=== PATIENT | female | born 1970 | race Caucasian/White ===

== ENCOUNTER → 2018-01-07 | Outpatient (CLI) | payer BC | LOC: M WHC 15:17 | DX: Z12.31 Encounter for screening mammogram for malignant neoplasm of breast (principal); E65 Localized adiposity | CPT/HCPCS: 77067 ==

== ENCOUNTER → 2018-01-07 | Outpatient (REF) | payer OTHER | LOC: M SFHCWAGY 15:53 | DX: Z01.411 Encounter for gynecological examination (general) (routine) with abnormal findings (principal) | CPT/HCPCS: G0123 ==

== ENCOUNTER → 2018-08-17 | Outpatient (CLI) | payer BC, OTHER | LOC: M LRY 12:24 | DX: S89.91XA Unspecified injury of right lower leg, initial encounter (principal); M17.11 Unilateral primary osteoarthritis, right knee; X58.XXXA Exposure to other specified factors, initial encounter; Y92.9 Unspecified place or not applicable | CPT/HCPCS: 73564 ==

== ENCOUNTER → 2018-10-11 | Outpatient (CLI) | payer BC, OTHER | LOC: M LRY 11:03 | DX: R05 Cough (principal) | CPT/HCPCS: 71046 ==

== ENCOUNTER → 2018-10-11 | Outpatient (CLI) | payer BC, OTHER | LOC: M LRY 09:18 | DX: M25.572 Pain in left ankle and joints of left foot (principal); M25.772 Osteophyte, left ankle | CPT/HCPCS: 73610 ==

== ENCOUNTER → 2019-07-14 | Outpatient (REF) | payer OTHER ==
[2019-07-14 20:21] LABS: HEMOGLOBIN 11.1 g/dl (12.0-15.5); MEAN CORPUSCULAR HEMOGLOBIN 22.9 pg (27.0-33.0); MEAN CORPUSCULAR VOLUME 76.4 fl (80.0-96.0); PLATELET COUNT, AUTOMATED 405 10^3/uL (150-450); RED BLOOD COUNT 4.84 10^6/uL (4.00-5.40); WHITE BLOOD COUNT 12.6 10^3/uL (4.0-10.0)
[2019-07-14 20:30] LABS: ALBUMIN 3.3 GM/DL (3.2-5.2); ALT/SGPT 18 U/L (12-78); BILIRUBIN,TOTAL 0.1 MG/DL (0.2-1.0); BLOOD UREA NITROGEN 16 MG/DL (7-18); CALCIUM LEVEL 9.6 MG/DL (8.5-10.1); CARBON DIOXIDE LEVEL 28 MEQ/L (21-32); CHLORIDE LEVEL 104 MEQ/L (98-107); GLOMERULAR FILTRATION RATE > 60.0 (>58); GLUCOSE, FASTING 92 MG/DL (70-100); POTASSIUM SERUM 4.2 MEQ/L (3.5-5.1); SODIUM LEVEL 140 MEQ/L (136-145); THYROID STIMULATING HORMONE 0.651 uIU/ML (0.358-3.740); TOTAL PROTEIN 7.1 GM/DL (6.4-8.2)
== END ==
LOC: M SFHCLERA 16:45
PROVIDERS: ATTEND Nurse Practitioner Family
DX: R00.2 Palpitations (principal); R01.1 Cardiac murmur, unspecified

== ENCOUNTER → 2023-06-11 | Outpatient (CLI) | payer BC, OTHER | LOC: M WHC 11:02 | PROVIDERS: ATTEND Nurse Practitioner Women's Health | DX: Z12.31 Encounter for screening mammogram for malignant neoplasm of breast (principal) ==

== ENCOUNTER → 2023-06-11 | Outpatient (CLI) | payer BC, OTHER ==
[2023-06-11 15:27] LABS: GC DNA AMPLIFICATION NEGATIVE (NEGATIVE)
[2023-06-11 16:51] LABS: HIV 1&2 SCREEN NEGATIVE (NEGATIVE)
== END ==
LOC: M PLALAB 12:09
PROVIDERS: ATTEND Nurse Practitioner Women's Health
DX: Z01.419 Encounter for gynecological examination (general) (routine) without abnormal findings (principal); Z11.3 Encounter for screening for infections with a predominantly sexual mode of transmission; Z77.9 Other contact with and (suspected) exposures hazardous to health
CPT/HCPCS: 36415; 86780; 87389; 87624; 87661; 87810; 87850; G0123

== ENCOUNTER 2024-01-03 09:47 | Day surgery (SDC) | payer BC, OTHER ==
[~2024-01-03] VITALS: Ht 167.6 cm; Wt 158.4 kg
[~2024-01-03 09:47] MED LIST: FLUO20CA22 PO; HYDR12CA PO; LISI20TA33 PO; SAXE1INJ
[2024-01-03] MEDS ORDERED: DEXTROSE 50% 50ML SYRINGE IV PRN (10:05)
[2024-01-03] MEDS ORDERED: LR 1,000 ML IV SCH ×2 (10:05→14:15)
[2024-01-03] MEDS ORDERED: GLUCOSE 4GM CHEW TABLET PO PRN (10:05)
[2024-01-03] MEDS ORDERED: GLUCAGON INJ 1MG VIAL SC PRN (10:05)
[2024-01-03] MEDS ORDERED: INSULIN LISPRO (NovoLOG) PER UNIT SC PRN (10:05)
[2024-01-03 10:49] LABS: HEMATOCRIT 39.4 % (36.0-47.0); HEMOGLOBIN 12.3 g/dl (12.0-15.5); MEAN CORPUSCULAR HEMOGLOBIN 24.5 pg (27.0-33.0); MEAN CORPUSCULAR HGB CONC 31.2 g/dl (32.0-36.5); MEAN CORPUSCULAR VOLUME 78.5 fl (80.0-96.0); PLATELET COUNT, AUTOMATED 356 10^3/uL (150-450); RED BLOOD COUNT 5.02 10^6/uL (4.00-5.40)
[2024-01-03 11:08] LABS: ALBUMIN 3.5 G/DL (3.2-5.2); ALKALINE PHOSPHATASE 140 U/L (46-116); ALT/SGPT 23 U/L (7.0-40); AST/SGOT 15 U/L (<34); BILIRUBIN,TOTAL 0.3 MG/DL (0.3-1.2); BLOOD UREA NITROGEN 14 MG/DL (9-23); CALCIUM LEVEL 9.3 MG/DL (8.5-10.1); CARBON DIOXIDE LEVEL 26 MMOL/L (20-31); CHLORIDE LEVEL 104 MMOL/L (98-107); GLOMERULAR FILTRATION RATE > 60.0 (>51); GLUCOSE, FASTING 102 MG/DL (60-100); POTASSIUM SERUM 4.4 MMOL/L (3.5-5.1); SODIUM LEVEL 137 MMOL/L (136-145); TOTAL PROTEIN 6.8 G/DL (5.7-8.2)
[2024-01-03] MEDS ORDERED: LIDOCAINE 2% 100MG/5ML SDV (FOR ANES.) As Ordered ONE (11:19)
[2024-01-03] MEDS ORDERED: propofoL 200 MG/20 ML VIAL As Ordered ONE (11:19)
[2024-01-03] MEDS ORDERED: ROCURONIUM BROMIDE 50MG/5ML VIAL As Ordered ONE (11:19)
[2024-01-03] MEDS ORDERED: fentaNYL 100 MCG/2 ML INJECTION As Ordered ONE (11:20)
[2024-01-03] MEDS ORDERED: MIDAZOLAM INJ 2MG/2ML VIAL As Ordered ONE (11:20)
[2024-01-03] MEDS ORDERED: PHENYLephrine 500MCG 5ML (100MCG/ML) SYRINGE As Ordered ONE (12:23)
[2024-01-03] MEDS ORDERED: ePHEDrine SULFATE 25 MG/5 ML(5MG/ML) SYRINGE As Ordered ONE (12:51)
[2024-01-03] MEDS: ESTROGENS VAGINAL CREAM 30GM As Ordered ONE (13:15)
[2024-01-03] MEDS: SILVER SULFADIAZINE 1% CR 50 GM JAR As Ordered ONE (13:17)
[2024-01-03] MEDS ORDERED: propofoL 500 MG/50 ML VIAL As Ordered ONE (13:40)
[2024-01-03] MEDS ORDERED: KETOROLAC 60MG 2ML VIAL As Ordered ONE (14:08)
[2024-01-03] MEDS ORDERED: HYDROMORPHONE HCL 0.5 MG/ 0.5 ML SYRINGE IV PRN (14:15)
[2024-01-03] MEDS ORDERED: fentaNYL 100 MCG/2 ML INJECTION IV PRN (14:15)
[2024-01-03] MEDS ORDERED: ONDANSETRON 4MG 2ML VIAL IV PRN (14:15)
[2024-01-03] MEDS ORDERED: oxyCODONE 5MG TAB PO PRN (14:15)
[2024-01-03 14:50] VITALS: BP 138/80; TEMP 97.9; O2SAT 96
[2024-01-03] MEDS ORDERED: OXYC-517 PO (16:06)
== END 2024-01-03 14:50 | disposition home or self-care (01) ==
LOC: M SDC 09:47
PROVIDERS: ATTEND Obstetrics & Gynecology
DX: N90.60 Unspecified hypertrophy of vulva (principal); R10.2 Pelvic and perineal pain; G47.30 Sleep apnea, unspecified; Z68.43 Body mass index [BMI] 50.0-59.9, adult; I10 Essential (primary) hypertension; F41.9 Anxiety disorder, unspecified; F32.A Depression, unspecified; Z88.1 Allergy status to other antibiotic agents; Z79.899 Other long term (current) drug therapy
CPT/HCPCS: 36415; 56620; 80053; 81025; 85027; 86850; 86900; 86901; 88302; J0665; J1885; J2250; J2371; J3010

== ENCOUNTER → 2024-09-12 | Outpatient (CLI) | payer BC ==
[~2024-09-12] MED LIST changes: +FLUO-365 PO; -FLUO20CA22 PO; +OXYC-517 PO
[2024-09-12 16:08] LABS: BASO # 0.1 10^3/uL (0.0-0.2); BASO % 0.6 % (0.0-1.0); EOS # 0.1 10^3/uL (0.0-0.5); EOS % 1.2 % (0.0-3.0); HEMATOCRIT 40.6 % (36.0-47.0); HEMOGLOBIN 12.8 g/dl (12.0-15.5); LYMPH # 2.1 10^3/uL (1.5-5.0); LYMPH % 17.8 % (24.0-44.0); MEAN CORPUSCULAR HGB CONC 31.5 g/dl (32.0-36.5); MEAN CORPUSCULAR VOLUME 79.5 fl (80.0-96.0); MONO # 0.9 10^3/uL (0.0-0.8); MONO % 7.2 % (2.0-8.0); NEUTROPHILS # 8.8 10^3/uL (1.5-8.5); NEUTROPHILS % 72.9 % (36.0-66.0); PLATELET COUNT, AUTOMATED 394 10^3/uL (150-450); RED BLOOD COUNT 5.11 10^6/uL (4.00-5.40)
[2024-09-12 16:39] LABS: ALBUMIN 3.6 G/DL (3.2-5.2); ALKALINE PHOSPHATASE 161 U/L (35-104); ALT/SGPT 22 U/L (7.0-40); AST/SGOT 14 U/L (<34); BILIRUBIN,TOTAL 0.3 MG/DL (0.3-1.2); BLOOD UREA NITROGEN 17 MG/DL (9-23); CALCIUM LEVEL 9.8 MG/DL (8.5-10.1); CARBON DIOXIDE LEVEL 24 MMOL/L (20-31); CHLORIDE LEVEL 105 MMOL/L (98-107); CHOLESTEROL LEVEL 144 MG/DL (<200); CHOLESTEROL RISK RATIO 2.36 (<5); CREATININE FOR GFR 0.63 MG/DL (0.55-1.30); FOLATE 20.35 NG/ML (>5.4); GLOMERULAR FILTRATION RATE > 60.0 (>51); GLUCOSE, FASTING 97 MG/DL (60-100); HDL CHOLESTEROL 60.9 MG/DL (>40); IRON (FE) 57 UG/DL (50-170); LDL CHOLESTEROL 63.1 MG/DL (<100); NON-HDL-C 83.1 MG/DL; PERCENT SATURATION 14.5 % (13.2-45.0); POTASSIUM SERUM 4.4 MMOL/L (3.5-5.1); SODIUM LEVEL 138 MMOL/L (136-145); TOTAL IRON BINDING CAPACITY 393 UG/DL (250-425); TRIGLYCERIDES LEVEL 100 MG/DL (<150)
[2024-09-12 16:40] LABS: TOTAL 25(OH) VITAMIN D 36.3 NG/ML (20.0-100.0)
[2024-09-12 16:46] LABS: VITAMIN B12 LEVEL > 2000 PG/ML (211-911)
[2024-09-12 17:03] LABS: HEMOGLOBIN A1c 5.6 % (4.0-6.0)
== END ==
LOC: M PLALAB 12:32
PROVIDERS: ATTEND Family Medicine
DX: E66.01 Morbid (severe) obesity due to excess calories (principal)

== ENCOUNTER → 2024-09-12 | Outpatient (CLI) | payer BC ==
[2024-09-12 16:31] LABS: HEPATITIS B SURFACE ANTIGEN NEGATIVE (NEGATIVE)
[2024-09-12 16:44] LABS: HIV 1&2 SCREEN NEGATIVE (NEGATIVE)
[2024-09-12 16:52] LABS: HEPATITIS C VIRUS ABY INDEX < 0.02 INDEX (<0.8)
[2024-09-12 16:53] LABS: HEPATITIS B CORE ANTIBODY IGM NEGATIVE (NEGATIVE)
[2024-09-12 20:14] LABS: Trichomonas vaginalis (AMP) NOT DETECTED (NEGATIVE)
[2024-09-12 20:38] LABS: GC DNA AMPLIFICATION NEGATIVE (NEGATIVE)
[2024-09-15 14:51] LABS: HSV SOURCE Serum; HSV-1 DNA Not Detected (Not Detected); HSV-2 DNA Not Detected (Not Detected)
== END ==
LOC: M PLALAB 12:36
PROVIDERS: ATTEND Obstetrics & Gynecology
DX: Z20.2 Contact with and (suspected) exposure to infections with a predominantly sexual mode of transmission (principal)

== ENCOUNTER → 2024-09-12 | Outpatient (CLI) | payer BC | LOC: M WHC 11:07 | PROVIDERS: ATTEND Obstetrics & Gynecology | DX: Z12.31 Encounter for screening mammogram for malignant neoplasm of breast (principal) ==

== ENCOUNTER → 2024-12-26 | Outpatient (CLI) | payer BC | LOC: M RAD 07:32 | PROVIDERS: ATTEND Family Medicine | DX: R74.8 Abnormal levels of other serum enzymes (principal); K80.20 Calculus of gallbladder without cholecystitis without obstruction ==

== ENCOUNTER → 2025-01-03 | Outpatient (CLI) | payer BC | LOC: M RAD 08:23 | PROVIDERS: ATTEND Family Medicine | DX: Z12.2 Encounter for screening for malignant neoplasm of respiratory organs (principal); F17.211 Nicotine dependence, cigarettes, in remission; Z98.84 Bariatric surgery status; K80.20 Calculus of gallbladder without cholecystitis without obstruction ==

== ENCOUNTER → 2025-08-02 | Outpatient (REF) | payer BC ==
[~2025-08-02] MED LIST changes: +HYDR12.510 PO; -HYDR12CA PO
[2025-08-02 22:32] LABS: Trichomonas vaginalis (AMP) NOT DETECTED (NEGATIVE)
[2025-08-02 22:56] LABS: GC DNA AMPLIFICATION NEGATIVE (NEGATIVE)
== END ==
LOC: M SFHCWAGY 17:43
PROVIDERS: ATTEND Nurse Practitioner Family
DX: Z11.3 Encounter for screening for infections with a predominantly sexual mode of transmission (principal)

== ENCOUNTER → 2025-10-08 | Outpatient (REF) | payer BC, OTHER ==
[2025-10-08 19:35] LABS: Trichomonas vaginalis (AMP) NOT DETECTED (NEGATIVE)
[2025-10-08 19:59] LABS: GC DNA AMPLIFICATION NEGATIVE (NEGATIVE)
== END ==
LOC: M SFHCWAGY 17:20
PROVIDERS: ATTEND Nurse Practitioner Family
DX: Z01.419 Encounter for gynecological examination (general) (routine) without abnormal findings (principal); Z11.3 Encounter for screening for infections with a predominantly sexual mode of transmission

== ENCOUNTER → 2025-10-08 | Outpatient (CLI) | payer BC | LOC: M WHC 09:22 | PROVIDERS: ATTEND Nurse Practitioner Family | DX: Z12.31 Encounter for screening mammogram for malignant neoplasm of breast (principal) ==